=== PATIENT | male | born 1990 | race African-American/Black ===

== ENCOUNTER 2017-02-01 15:27 | Emergency (ER) | payer SELFPAY ==
[~2017-02-01] VITALS: Ht 162.6 cm; Wt 70.0 kg
[~2017-02-01 15:27] MED LIST: DOCU1CAP39 PO; SERO100T PO
[2017-02-01 15:30] VITALS: BP 123/60; PULSE 100; RESP 20; TEMP 98.8; O2SAT 98
[2017-02-01] MEDS ORDERED: SERO100T PO (16:01)
[2017-02-01 17:23] VITALS: PULSE 90
--- NOTE | 2017-02-01 17:25 | PD ---
HPI Chief Complaint: Medication Refill Request Time Seen by Provider: 17:22 Travel History International Travel<30 days: No Contact w/Intl Traveler<30days: No Traveled to known affect area: No History of Present Illness HPI 26-year-old male presents to emergency department requesting refill on Seroquel. Says he's been out for a few days. Takes for depression. Does not have a primary care provider in this area. Denies suicidal or homicidal ideations. Denies feeling depressed. Has no other medical complaints. No known allergies. Symptoms are mild in severity. No other modifying factors or associated signs and symptoms. History Past Medical Histgory Hx Cancer: No Social History Alcohol Use: No Tobacco Use: No Allergies-Medications (Allergen,Severity, Reaction): Coded Allergies: No Known Allergies (Unverified , 02/01/17) Reported Meds & Prescriptions Reported Meds & Active Scripts Active Reported Seroquel (Quetiapine Fumarate) 100 Mg Tab 150 Mg PO HS Review of Systems Except as stated in HPI: all other systems reviewed are Neg Physical Exam Narrative GENERAL: Well-nourished, well-developed black male patient, in no acute distress SKIN: Warm and dry. HEAD: Atraumatic. Normocephalic. EYES: Pupils equal and round. No scleral icterus. No injection or drainage. ENT: Mucosa pink and moist. Airway patent. NECK: Trachea midline. CARDIOVASCULAR: Regular rate. RESPIRATORY: No accessory muscle use. GASTROINTESTINAL: Flat. MUSCULOSKELETAL: No obvious deformities. No clubbing. No cyanosis. No edema. NEUROLOGICAL: Awake and alert. Oriented 3. No obvious cranial nerve deficits. Motor grossly within normal limits. Normal speech. PSYCHIATRIC: Appropriate mood and affect; insight and judgment normal. Data Data Last Documented VS Vital Signs Date Time Temp Pulse Resp B/P (MAP) Pulse Ox O2 Delivery O2 Flow Rate FiO2 02/01/17 15:30 98.8 100 20 123/60 (81) 98 Room Air MDM Medical Screen Exam Complete: Yes Emergency Medical Condition: No Differential Diagnosis Medication refill Narrative Course 26-year-old male requesting refill on Seroquel. Denies suicidal or homicidal ideations. Vital signs are stable and the patient is stable for outpatient follow-up and treatment. The patient has no urgent or emergent medical complaints. There is no emergent or urgent medical need at this time. I instructed the patient to follow up with their primary care provider. A medical screening exam was performed: At the time of evaluation the presenting medical condition was determined not to be of an emergent nature. The patient was given the option of receiving additional care, but declined. Patient was given options for additional community resources from which to obtain care. The Patient Has Been advised to seek medical attention for their presenting complaint. The patient has been advised to return to the ER at any time if an emergent condition develops. Primary Impression: Encounter for medical screening examination Condition: Stable Laney Lainez [facility] Feb 01, 2017 17:25
== END 2017-02-01 17:54 | disposition left against medical advice (07) ==
LOC: NEPK 15:27
DX: Z86.59 Personal history of other mental and behavioral disorders (principal)
CPT/HCPCS: 99281